=== PATIENT | female | born 1995 | race Caucasian/White ===

== ENCOUNTER → 2020-05-18 20:50 | Observation (INO) | END | disposition home or self-care (01) | LOC: 1NENULAB | PROVIDERS: ADMIT Advanced Practice Midwife; ATTEND Advanced Practice Midwife ==

== ENCOUNTER 2020-05-27 03:35 | Inpatient (IN) ==
[~2020-05-27 03:35] MED LIST: *HR* Nalbuphine 10 MG/ML AMPUL IV PRN; Azithromycin 500 MG in 0.9 % Sodium Chloride 250 ML IVPB ONE; Famotidine 20 MG/2 ML VIAL IVP PRN; Lidocaine 1% 20 ML MDV ID PRN; Metoclopramide 10 MG/2 ML VIAL IVP PRN; Naloxone 0.4 MG/ML INJ IVP PRN; Ondansetron 4 MG/2 ML VIAL IVP PRN
[2020-05-27] MEDS ORDERED: Ringers Solution, Lactated 1,000 ML IVC SCH (03:45)
[2020-05-27 04:05] LABS: Basophils % 0.3 %; Eosinophils # 0.1 K/mcL (0.0-0.6); Eosinophils % 0.6 %; Hematocrit 34.9 % (35.3-44.9); Hemoglobin 11.7 g/dL (11.5-15.4); Immature Granulocytes % 0.5 % (0-4); Lymphocytes # 1.9 K/mcL (0.6-4.6); Lymphocytes % 23.9 %; Mean Corpuscular HGB Conc 33.5 g/dL (31.6-35.5); Mean Corpuscular Volume 92.3 fL (83.0-100.0); Mean Platelet Volume 11.1 fL (9.4-12.4); Monocytes # 0.6 K/mcL (0.0-1.3); Monocytes % 7.9 %; Neutrophils # 5.2 K/mcL (1.6-8.9); Platelet Count 226 K/mcL (140-400); Red Blood Count 3.78 M/mcL (3.82-4.97); Red Cell Distribution Width 12.3 % (11.5-14.5); Segmented Neutrophils % 66.8 %; White Blood Count 7.7 K/mcL (4.3-11.1)
[2020-05-27 04:15] LABS: Amphetamine Screen,Urine Negative ng/mL (Cutoff=1000); Barbiturate Screen,Urine Negative ng/mL (Cutoff=200); Benzodiazepines Screen,Urine Negative ng/mL (Cutoff=200); Cannabinoid Screen,Urine Negative ng/mL (Cutoff = 50); Cocaine Screen,Urine Negative ng/mL (Cutoff= 300); Creatinine,Urine 82 mg/dL; Opiate Screen,Urine Negative ng/mL (Cutoff=300); Phencyclidine Screen,Urine Negative ng/mL (Cutoff=25); Protein/Creatinine Ratio,Urine 0.27 mg/mg (0.00-0.20)
[2020-05-27] MEDS ORDERED: Ropivacaine/PF 0.2% 20 ML VIAL EP ONE (04:36)
[2020-05-27] MEDS ORDERED: *HR* FentaNYL (PF) 100 MCG/2 ML VIAL EP ONE (04:36)
[2020-05-27] MEDS ORDERED: EPHEDrine 50 MG/ML VIAL IVP PRN (04:36)
[2020-05-27] MEDS ORDERED: Ropivacaine/PF 0.2% 20 ML VIAL ONE (04:41)
[2020-05-27] MEDS ORDERED: *HR* FentaNYL (PF) 100 MCG/2 ML VIAL ONE ×2 (04:42→06:44)
[2020-05-27] MEDS ORDERED: Epidural Premix (fent/bupiv) 110 ML EP SCH (04:45)
[2020-05-27 05:07] LABS: Adenovirus Not Detected (Not Detect); Coronavirus 229E Not Detected (Not Detect)
[2020-05-27 05:08] LABS: Bordetella Pertussis Not Detected (Not Detect); Chlamydophila pneumoniae Not Detected (Not Detect); Coronavirus HKU1 Not Detected (Not Detect); Coronavirus NL63 Not Detected (Not Detect); Coronavirus OC43 Not Detected (Not Detect); Human Metapneumovirus Not Detected (Not Detect); Human Rhinovirus/Enterovirus Not Detected (Not Detect); Influenza A Subtype 2009 H1 Not Detected (Not Detect); Influenza B Not Detected (Not Detect); Mycoplasma pneumoniae Not Detected (Not Detect); Parainfluenza Virus 1 Not Detected (Not Detect); Parainfluenza Virus 2 Not Detected (Not Detect); Parainfluenza Virus 3 Not Detected (Not Detect); Parainfluenza Virus 4 Not Detected (Not Detect); Respiratory Syncytial Virus Not Detected (Not Detect); SARS-CoV-2 Not Detected (Not Detect)
[2020-05-27 05:20] LABS: Alanine Aminotransferase 12 Units/L (7-52); Aspartate Amino Transferase 14 Units/L (13-39); BUN/Creatinine Ratio 20 (6-26); Blood Urea Nitrogen 11 mg/dL (6-20); Lactate Dehydrogenase 161 Units/L (140-271); Uric Acid 3.8 mg/dL (2.3-7.6); eGFR For African Americans > 60 (> 60); eGFR For Non-African Americans > 60 (> 60)
[2020-05-27] MEDS ORDERED: Oxytocin 20 units/ LR 1000 mL 20 UNIT/1,000 ML BAG IVC SCH ×2 (08:00→13:06)
[2020-05-27] MEDS ORDERED: *HR* Ropivacaine/PF 0.5% 20 ML VIAL ONE (10:20)
[2020-05-27] MEDS ORDERED: Benzocaine/Menthol 56 GM AEROSOL SPRAY TP PRN (13:06)
[2020-05-27] MEDS ORDERED: Lanolin 7 G OINT...G. TP PRN (13:06)
[2020-05-27] MEDS ORDERED: Acetaminophen 325 MG TABLET PO PRN (13:06)
[2020-05-27] MEDS: Ibuprofen 600 MG TABLET PO PRN ×2 (15:45→21:51)
[2020-05-28] MEDS: Ibuprofen 600 MG TABLET PO PRN ×2 (02:58→09:30)
[2020-05-28] MEDS ORDERED: Prenatal Vit/FA 1 EACH TABLET PO SCH (09:00)
[2020-05-28] MEDS ORDERED: NIFEdipine XL (24 HR) 30 MG TAB.ER.24 PO SCH (09:30)
[2020-05-28 12:52] VITALS: BP 126/82
== END 2020-05-28 14:35 | disposition home or self-care (01) | DRG 560 ==
LOC: 1NENULAB → 1NENUOBS 15:34
PROVIDERS: ADMIT Advanced Practice Midwife; ATTEND Advanced Practice Midwife